=== PATIENT | female | born 1955 | race Hispanic/Latino ===

== ENCOUNTER 2021-12-30 21:56 | Emergency (ER) | payer OTHER ==
[2021-12-30 22:09] VITALS: BP 154/62
[2021-12-31] MEDS ORDERED: ACETAMINOPHEN 500 MG TAB PO ONE (02:43)
[2021-12-31] MEDS ORDERED: diazePAM 5 MG TAB PO ONE (02:43)
[2021-12-31] MEDS ORDERED: IBUPROFEN 600 MG TAB PO ONE (02:43)
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
--- NOTE | 2021-12-31 09:32 | Electrocardiograph Report ---
[facility] Test Date: 2021-12-30 Test Time: 22:01:08 Pat Name: LUDWIG PRESCOTT Department: Room: Gender: F [employer]: KIM : 1955 Requested By: ARNULFO FOSTER Order Number: [id number] Reading MD: Starr Herrera Measurements Intervals [place] Rate: 90 P: 83 OK: 149 QRS: 43 QRSD: 134 T: 42 QT: 366 QTc: 448 Interpretive Statements Sinus rhythm Right bundle branch block No previous ECG available for comparison Electronically Signed On 12-31-2021 9:32:40 EST by Starr Herrera
== END 2021-12-31 03:30 | disposition home or self-care (01) ==
LOC: ED 21:56
DX: S20.219A Contusion of unspecified front wall of thorax, initial encounter (principal); R07.89 Other chest pain; Z88.5 Allergy status to narcotic agent; V89.2XXA Person injured in unspecified motor-vehicle accident, traffic, initial encounter; Y93.89 Activity, other specified; Y92.89 Other specified places as the place of occurrence of the external cause; Y99.8 Other external cause status
CPT/HCPCS: 93005; 93010; 99283